=== PATIENT | female | born 1970 | race Caucasian/White ===

== ENCOUNTER 2017-08-24 10:50 | Emergency (ER) | payer SELFPAY ==
[~2017-08-24] VITALS: Ht 170.2 cm; Wt 75.0 kg
[~2017-08-24 10:50] MED LIST: BENZ100 PO; ZITH250T PO; ZOFR4TAB3 SL
[2017-08-24 11:02] VITALS: BP 183/106; PULSE 89; RESP 18; TEMP 98.1; O2SAT 99
[2017-08-24 12:26] LABS: BASOPHIL % 0.2 % (0.0-2.0); EOSINOPHIL # 0.1 TH/MM3 (0-0.4); EOSINOPHIL % 1.1 % (0.0-4.0); HEMATOCRIT 44.8 % (35.0-46.0); HEMOGLOBIN 15.4 GM/DL (11.6-15.3); LYMPH % 23.8 % (9.0-44.0); LYMPHOCYTE # 1.5 TH/MM3 (1.0-4.8); MEAN CELL VOLUME 91.8 FL (80.0-100.0); MEAN CORPUSCULAR HEMOGLOBIN 31.6 PG (27.0-34.0); MEAN CORPUSCULAR HGB CONC 34.4 % (32.0-36.0); MONO % 11.1 % (0.0-8.0); MONOCYTE # 0.7 TH/MM3 (0-0.9); NEUT % 63.8 % (16.0-70.0); PLATELET COUNT 217 TH/MM3 (150-450); RED BLOOD COUNT 4.88 MIL/MM3 (4.00-5.30); RED CELL DISTRIBUTION WIDTH 13.5 % (11.6-17.2); WHITE BLOOD COUNT 6.3 TH/MM3 (4.0-11.0)
[2017-08-24 12:31] LABS: BILIRUBIN, URINE NEG (NEG); BLOOD, URINE TRACE (NEG); GLUCOSE,URINE NEG (NEG); HYALINE CAST, URINE 6 /lpf (RARE); KETONE, URINE 10 mg/dL (NEG); NITRITE,URINE NEG (NEG); SQUAMOUS EPITHELIAL CELL URINE 6 /hpf (0-5); URINE COLOR YELLOW (YELLW/STRAW); URINE LEUKOCYTE ESTERASE NEG (NEG)
[2017-08-24 12:49] LABS: ALBUMIN 4.1 GM/DL (3.4-5.0); ALT (GPT) 19 U/L (10-53); AST (GOT) 20 U/L (15-37); BLOOD UREA NITROGEN 7 MG/DL (7-18); CHLORIDE 102 MEQ/L (98-107); CREATININE 0.76 MG/DL (0.50-1.00); GLOMERULAR FILTRATION RATE 81 ML/MIN (>89); GLUCOSE,RANDOM 80 MG/DL (74-106); SODIUM (NA) 136 MEQ/L (136-145)
[2017-08-24 12:50] LABS: ALKALINE PHOSPHATASE 78 U/L (45-117); TOTAL BILIRUBIN ADULT 0.3 MG/DL (0.2-1.0); TOTAL PROTEIN 7.9 GM/DL (6.4-8.2)
--- NOTE | 2017-08-24 13:50 | PD ---
HPI Chief Complaint: GI Complaint Time Seen by Provider: 13:33 Travel History International Travel<30 days: No Contact w/Intl Traveler<30days: No Traveled to known affect area: No History of Present Illness HPI 47-year-old female presents emergency department with day 3 of nausea , vomiting, diarrhea, abdominal cramping. Patient is concerned of possible urinary tract infection. Patient states her symptoms started with severe heartburn followed by nausea and vomiting. Patient states she has been continuously vomiting for the past 2 days. She also states frequent loose stools and that time as well. She denies significant fever. Patient has no specific point tenderness in the abdomen. Patient denies urinary symptoms. She has been complaining of generalized abdominal pain and flank pain. Labs are drawn in the triage area including urinalysis. Patient has no history of Crohn's disease or colitis. Patient is allergic to sulfa. PFSH Past Medical History : 2 Para: 2 Miscarriage: 0 : 0 Tubal Ligation: Yes Past Surgical History Section: Yes Eye Surgery: Yes ([facility]. EYE SURGERY A CHILD) Gynecologic Surgery: Yes ( AND TUBAL LIGATION ) Social History Alcohol Use: Yes (COUPLE TIMES/WEEK) Tobacco Use: Yes (1 PPD) Substance Use: No Allergies-Medications (Allergen,Severity, Reaction): Coded Allergies: Sulfa (Sulfonamide Antibiotics) (Unverified Allergy, Severe, 08/24/17) Reported Meds & Prescriptions Reported Meds & Active Scripts Active No Active Prescriptions or Reported Medications Review of Systems Except as stated in HPI: all other systems reviewed are Neg General / Constitutional: No: Fever Eyes: No: Visual changes HENT: No: Headaches Cardiovascular: No: Chest Pain or Discomfort Respiratory: No: Shortness of Breath Gastrointestinal: Positive: Nausea, Vomiting, Diarrhea, Abdominal Pain Genitourinary: Positive: Flank Pain, No: Urgency, Frequency, Dysuria Musculoskeletal: No: Pain Skin: No Rash Neurologic: No: Weakness Psychiatric: No: Depression Endocrine: No: Polydipsia Hematologic/Lymphatic: No: Easy Bruising Physical Exam Narrative GENERAL: Patient appears in mild distress. SKIN: Warm and dry. Normal color. Normal turgor. HEAD: Atraumatic. Normocephalic. EYES: Pupils equal and round. No scleral icterus. No injection or drainage. ENT: No nasal bleeding or discharge. Mucous membranes pink and moist. Posterior pharynx is normal. Airways patent NECK: Trachea midline. Supple. CARDIOVASCULAR: Regular rate and rhythm. RESPIRATORY: No accessory muscle use. Clear to auscultation. Breath sounds equal bilaterally. GASTROINTESTINAL: Abdomen soft, mild diffuse tenderness, nondistended. No point tenderness or guarding. No rebound. Hepatic and splenic margins not palpable. MUSCULOSKELETAL: Extremities without clubbing, cyanosis, or edema. No obvious deformities. NEUROLOGICAL: Awake and alert. No obvious cranial nerve deficits. Motor grossly within normal limits. Five out of 5 muscle strength in the arms and legs. Normal speech. PSYCHIATRIC: Appropriate mood and affect; insight and judgment normal. Data Data Last Documented VS Vital Signs Date Time Temp Pulse Resp B/P (MAP) Pulse Ox O2 Delivery O2 Flow Rate FiO2 08/24/17 11:04 18 08/24/17 11:02 98.1 89 183/106 (131) 99 Orders Orders Complete Blood Count With Diff (08/24/17 11:19) Comprehensive Metabolic Panel (08/24/17 11:19) Urinalysis - C+S If Indicated (08/24/17 11:19) Ed Urine Pregnancytest Poc (08/24/17 11:19) Iv Access Insert/Monitor (08/24/17 14:01) Ecg Monitoring (08/24/17 14:01) Oximetry (08/24/17 14:01) Ondansetron Inj (Zofran Inj) (08/24/17 14:15) Sodium Chlor 0.9% 1000 Ml Inj (Ns 1000 M (08/24/17 14:01) Sodium Chloride 0.9% Flush (Ns Flush) (08/24/17 14:15) Famotidine Inj (Pepcid Inj) (08/24/17 14:15) Dicyclomine (Bentyl) (08/24/17 14:15) Ketorolac Inj (Toradol Inj) (08/24/17 14:15) Labs Laboratory Tests Test 08/24/17 11:29 08/24/17 11:31 Urine Color YELLOW Urine Turbidity CLEAR Urine pH 6.0 Urine Specific [place] 1.010 Urine Protein NEG mg/dL Urine Glucose (UA) NEG mg/dL Urine Ketones 10 mg/dL Urine Occult Blood TRACE Urine Nitrite NEG Urine Bilirubin NEG Urine Urobilinogen LESS THAN 2.0 MG/DL Urine Leukocyte Esterase NEG Urine RBC LESS THAN 1 /hpf Urine WBC 1 /hpf Urine Squamous Epithelial Cells 6 /hpf Urine Hyaline Casts 6 /lpf Microscopic Urinalysis Comment CULT NOT INDICATED White Blood Count 6.3 TH/MM3 Red Blood Count 4.88 MIL/MM3 Hemoglobin 15.4 GM/DL Hematocrit 44.8 % Mean Corpuscular Volume 91.8 FL Mean Corpuscular Hemoglobin 31.6 PG Mean Corpuscular Hemoglobin Concent 34.4 % Red Cell Distribution Width 13.5 % Platelet Count 217 TH/MM3 Mean Platelet Volume 10.0 FL Neutrophils (%) (Auto) 63.8 % Lymphocytes (%) (Auto) 23.8 % Monocytes (%) (Auto) 11.1 % Eosinophils (%) (Auto) 1.1 % Basophils (%) (Auto) 0.2 % Neutrophils # (Auto) 4.0 TH/MM3 Lymphocytes # (Auto) 1.5 TH/MM3 Monocytes # (Auto) 0.7 TH/MM3 Eosinophils # (Auto) 0.1 TH/MM3 Basophils # (Auto) 0.0 TH/MM3 CBC Comment DIFF FINAL Differential Comment Blood Urea Nitrogen 7 MG/DL Creatinine 0.76 MG/DL Random Glucose 80 MG/DL Total Protein 7.9 GM/DL Albumin 4.1 GM/DL Calcium Level 9.0 MG/DL Alkaline Phosphatase 78 U/L Aspartate Amino Transf (AST/SGOT) 20 U/L Alanine Aminotransferase (ALT/SGPT) 19 U/L Total Bilirubin 0.3 MG/DL Sodium Level 136 MEQ/L Potassium Level 3.6 MEQ/L Chloride Level 102 MEQ/L Carbon Dioxide Level 26.0 MEQ/L Anion Gap 8 MEQ/L Estimat Glomerular Filtration Rate 81 ML/MIN [facility] Medical Decision Making Medical Screen Exam Complete: Yes Emergency Medical Condition: Yes Differential Diagnosis Nausea vomiting. Diarrhea. Viral gastroenteritis. Urinary tract infection Narrative Course Patient is medically stable at time of exam. CBC is unremarkable. CMP is unremarkable. Urinalysis is unremarkable. IV access is obtained and the patient is given 4 mg Zofran IV, and 1000 mL normal saline bolus, in addition to 20 mg Pepcid IV. Patient is given 10 mg Bentyl p.o. Radiographic imaging is not felt warranted based on my history and physical. Patient will be continued on Zofran 4 mg every 6 hours as needed #12 Patient also given Bentyl 10 mg every 6 hours as needed #12 Patient is to rest, push fluids, and advance diet gradually. Work note is given. Diagnosis Primary Impression: Viral gastroenteritis Additional Impressions: Nausea & vomiting Qualified Codes: R11.2 - Nausea with vomiting, unspecified Diarrhea Qualified Codes: R19.7 - Diarrhea, unspecified Referrals: [facility] Patient Instructions: Acute Diarrhea (ED), Acute Nausea and Vomiting (ED), General Instructions Additional Instructions: CBC is unremarkable. CMP is unremarkable. Urinalysis is unremarkable. IV access is obtained and the patient is given 4 mg Zofran IV, and 1000 mL normal saline bolus, in addition to 20 mg Pepcid IV. Patient is given 10 mg Bentyl p.o. Radiographic imaging is not felt warranted based on my history and physical. Patient will be continued on Zofran 4 mg every 6 hours as needed #12 Patient also given Bentyl 10 mg every 6 hours as needed #12 Patient is to rest, push fluids, and advance diet gradually. Work note is given. Med/Other Pt SpecificInfo: Prescription(s) given Scripts No Active Prescriptions or Reported Meds Disposition: 01 DISCHARGE HOME Condition: Stable Noé Wong Aug 24, 2017 13:50
[2017-08-24] MEDS ORDERED: SODIUM CHLOR 0.9% 1000 ML INJ 1,000 ML IV SCH (14:01)
[2017-08-24] MEDS ORDERED: KETOROLAC TROMETHAMINE 30 MG/ML (IVP) VIAL IVP ONE (14:15)
[2017-08-24] MEDS ORDERED: ZOFR4TAB PO (14:15)
[2017-08-24] MEDS ORDERED: DICYCLOMINE HCL 10 MG CAP PO ONE (14:15)
[2017-08-24] MEDS ORDERED: SODIUM CHLORIDE 0.9% FLUSH 10 ML FLUSH IV FLUSH PRN (14:15)
[2017-08-24] MEDS ORDERED: DICY10 PO (14:15)
[2017-08-24] MEDS ORDERED: FAMOTIDINE 20 MG/2 ML VIAL IV PUSH ONE (14:15)
[2017-08-24] MEDS ORDERED: ONDANSETRON HCL 4 MG/2 ML VIAL IVP ONE (14:15)
== END 2017-08-24 15:38 | disposition home or self-care (01) ==
LOC: NEPD 10:50
DX: A08.4 Viral intestinal infection, unspecified (principal); F17.200 Nicotine dependence, unspecified, uncomplicated
CPT/HCPCS: 80053; 81001; 84703; 85025; 96374; 96375; 99284; J1885; J2405; J7030